=== PATIENT | male | born 1980 | race Caucasian/White ===

== ENCOUNTER 2018-02-09 17:34 | Emergency (ER) | payer MEDICAID ==
[~2018-02-09] VITALS: Ht 188 cm; Wt 100.0 kg
[~2018-02-09 17:34] MED LIST: ARIP10TA33; BENZ2AMP4 PO; MIRT15TA3 PO; MIRT30TA; QUET300T5 PO; RISP1TAB45 IM; SULF1TAB24 PO
--- NOTE | 2018-02-09 17:40 | NUR ---
RECIEVED REPORT FROM VINCENT RAMOS. ALL QUESTIONS ANSWERED ASSUMING CARE OF PT. PT TAKEN TO SHOWER BY WHEELCHAIR BY APPRENTICE PHOTOGRAPHER. PT WILL GO TO ED ROOM 15 AFTER SHOWER.
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
--- NOTE | 2018-02-09 18:28 | NUR ---
PT POOR HISTORIAN. UNABLE TO OBTAIN MEDICAL HISTORY INFORMATION FOR TRIAGE AND CLINICAL SCREEN AT THIS TIME.
--- NOTE | 2018-02-09 18:28 | NUR ---
PT UNABLE TO STAY AWAKE LONG ENOUGH TO ANSWER PAST MEDICAL HISTORY QUESTIONS AT THIS TIME. PT IS ALERT TO VOICE AND FOLLOWS COMMANDS. PT'S SPEECH IS INCOMPREHENSIBLE AT TIMES.
[2018-02-09] MEDS ORDERED: ARIP2TAB2 PO (18:40)
--- NOTE | 2018-02-09 18:58 | NUR ---
PROVIDED BEDSIDE REPORT TO VINCENT AVERY. ALL QUESTIONS ANSWERED. VINCENT AVERY ASSUMING CARE OF THIS PT.
--- NOTE | 2018-02-09 19:21 | NUR ---
PT RESTING ON GURNEY WITH EYES CLOSED RESPONDS TO VERBAL RESPONSE, UNABLE TO STAY AWAKE LONG ENOUGH TO ANSWER PAST MEDICAL HISTORY QUESTIONS AT THIS TIME. PT'S SPEECH IS INCOMPREHENSIBLE AT TIMES. EQUAL CHEST RISE/FALL OBSERVED, MONITORS IN PLACE, SIDERAILS UP X2, CALL LIGHT WITHIN REACH.
--- NOTE | 2018-02-09 20:19 | NUR ---
PT RESTING WITH EYES CLOSED, EASILY RESPONDS TO VERBAL COMMAND, ANSWERS ALL QUESTIONS APPROPRIATELY, PT ABLE TO AMBULATE IN ROOM WITHOUT DIFFICULTY, MONITORS REAPPLIED, CALL LIGHT WITHIN REACH, SIDERAILS UP X2. PA UPDATED ON PT STATUS, PA TO RECHECK PT.
--- NOTE | 2018-02-09 20:27 | NUR ---
PA AT PT'S BEDSIDE FOR RECHECK
--- NOTE | 2018-02-09 21:34 | NUR ---
PT RESTING ON GURNEY, OPENS EYES TO VERBAL RESPONSE, NODS HEAD NO WHEN ASKED ABOUT PAIN, EQUAL CHEST RISE/FALL OBSERVED, SIDERAILS UP X2, CALL LIGHT WITHIN REACH.
--- NOTE | 2018-02-09 21:54 | NUR ---
PT UP TO RR WITH STEADY GAIT, A&OX4, PROVIDED PT WITH SNACK, PA UPDATED ON PT STATUS.
[2018-02-09 22:20] VITALS: BP 140/84
--- NOTE | 2018-02-09 22:36 | NUR ---
PROVIDED PT WITH CLOTHING FROM HOSPITAL CLOSET, PT DENIES FURTHER NEEDS AT THIS TIME
== END 2018-02-09 22:41 | disposition home or self-care (01) ==
LOC: ED 22:35
DX: S09.90XA Unspecified injury of head, initial encounter (principal); G62.9 Polyneuropathy, unspecified; Y04.8XXA Assault by other bodily force, initial encounter; Y93.89 Activity, other specified; Y92.009 Unspecified place in unspecified non-institutional (private) residence as the place of occurrence of the external cause; Y99.8 Other external cause status
CPT/HCPCS: 99283

== ENCOUNTER 2018-04-13 10:58 | Emergency (ER) | payer MEDICAID ==
[~2018-04-13] VITALS: Ht 177.8 cm; Wt 96.0 kg
[~2018-04-13 10:58] MED LIST changes: +ARIP2TAB2 PO
[2018-04-13] MEDS ORDERED: ZIPRASIDONE 20 MG INJ IM ONE (11:00)
[2018-04-13 11:01] VITALS: BP 151/85
--- NOTE | 2018-04-13 11:12 | NUR ---
pt bib remsa for auditory hallucinations. pt states he is hearing voices. pt denies suicide or homicide. pt with hx: paranoid schizophrenia and has been off of his meds for a few days. pt continues to ramble on and talk and talk. urine sample collected and sent to lab. pt with hx: meth and heroine abuse.
[2018-04-13 11:38] LABS: AMPHETAMINE SCREEN, URINE Negative (Negative); BARBITURATE SCREEN, URINE Negative (Negative); BENZODIAZEPINE SCREEN, URINE Negative (Negative); CANNABINOID SCREEN, URINE Negative (Negative); COCAINE SCREEN, URINE Negative (Negative); METHADONE SCREEN, URINE Negative (Negative); OPIATE SCREEN, URINE Negative (Negative)
[2018-04-13 11:43] LABS: BASOPHILS # (AUTO) 0.04 x10^3/uL (0-0.1); BASOPHILS % (AUTO) 1 % (0-1); EOSINOPHILS # (AUTO) 0.22 x10^3/uL (0-0.4); EOSINOPHILS % (AUTO) 3 % (1-7); LYMPHOCYTES # (AUTO) 2.04 x10^3/uL (1-3.4); LYMPHOCYTES % (AUTO) 27 % (22-44); MD NO; MEAN CORPUSCULAR HEMOGLOBIN 30.4 pg (27.5-34.5); MEAN CORPUSCULAR HGB CONC 33.7 g/dL (33.2-36.2); MEAN CORPUSCULAR VOLUME 90.3 fL (81-97); MEAN PLATELET VOLUME 10.3 fL (7.4-10.4); MONOCYTES # (AUTO) 0.67 x10^3/uL (0.2-0.8); MONOCYTES % (AUTO) 9 % (2-9); NEUTROPHILS % (AUTO) 61 % (42-75); PLATELET COUNT 262 x10^3/uL (130-400); RED BLOOD COUNT 5.09 x10^6/uL (4.38-5.82); RED CELL DISTRIBUTION WIDTH 14.8 % (9.4-14.8)
[2018-04-13 11:54] LABS: CHLORIDE 112 mmol/L (98-107)
[2018-04-13 11:58] LABS: ANION GAP 6 mmol/L (5-15); CALCIUM 9.2 mg/dL (8.5-10.1)
[2018-04-13 12:04] LABS: ALANINE AMINOTRANSFERASE 98 U/L (12-78); ALKALINE PHOSPHATASE 119 U/L (45-117); BILIRUBIN,TOTAL 0.3 mg/dL (0.2-1.0); CREATININE 1.02 mg/dL (0.7-1.3); SALICYLATE LEVEL 2.1 mg/dL (2.8-20.0); TOTAL PROTEIN 7.5 g/dL (6.4-8.2)
[2018-04-13 12:05] LABS: ACETAMINOPHEN < 2 mcg/mL (10-30)
--- NOTE | 2018-04-13 12:33 | NUR ---
PT RESTING IN BED
--- NOTE | 2018-04-13 12:58 | NUR ---
PT BECAME UPSET AND STATING YOU GUYS AREN'T DOING ANYTHING FOR ME. "FUCK THIS PLACE. " PT REFUSED GEODON AND WANTED TO GO HOME. PT UP AMBULATORY AND STABLE ON FEET.
== END 2018-04-13 13:03 | disposition left against medical advice (07) ==
LOC: ED 11:24
DX: F20.0 Paranoid schizophrenia (principal); F20.9 Schizophrenia, unspecified; Z86.19 Personal history of other infectious and parasitic diseases
CPT/HCPCS: 36415; 80053; 80307; 80329; 85025; 99284; G0480

== ENCOUNTER 2018-05-19 11:38 | Emergency (ER) | payer MEDICAID ==
[~2018-05-19] VITALS: Ht 175.3 cm; Wt 93.2 kg
[2018-05-19 11:46] VITALS: BP 118/75
--- NOTE | 2018-05-19 11:56 | NUR ---
PT HERE FOR RIGHT ORBIT ABCESS.
[2018-05-19] MEDS ORDERED: LIDOCAINE-MPF 1%, 5ML ONE (12:27)
[2018-05-19] MEDS ORDERED: LIDOCAINE-MPF 1%, 5ML INFIL ONE (12:30)
== END 2018-05-19 12:59 | disposition home or self-care (01) ==
LOC: ED 11:55
DX: H00.033 Abscess of eyelid right eye, unspecified eyelid (principal); F17.200 Nicotine dependence, unspecified, uncomplicated; Z86.19 Personal history of other infectious and parasitic diseases
CPT/HCPCS: 10060; 99283

== ENCOUNTER 2018-10-19 23:08 | Emergency (ER) | payer MEDICAID, OTHER ==
[~2018-10-19] VITALS: Ht 182.9 cm; Wt 94.8 kg
[2018-10-19 23:08] VITALS: BP 154/80
[2018-10-19] MEDS ORDERED: OLAN10TA3 PO (23:13)
--- NOTE | 2018-10-19 23:17 | NUR ---
THE PT WAS TAKEN JUICE AND WATER. THE PT DENIES SI OR HI. ASKED DIRECTLY.
[2018-10-19] MEDS ORDERED: LORazepam 1MG TABLET ONE (23:25)
--- NOTE | 2018-10-19 23:27 | NUR ---
MEDICATED FOR ANXIETY.
[2018-10-19] MEDS ORDERED: LORazepam 1MG TABLET PO ONE (23:30)
--- NOTE | 2018-10-20 00:03 | NUR ---
D/C INST REVIEWED W/ THE PT TO INCLUDE F/U OP W/ A PCP AND OR MENTAL HEALTH PROFESSIONAL. THE PT WAS GIVEN A LIST OF REFERRALS AND A TAXI RIDE TO HIS MOTHER'S HOUSE.
== END 2018-10-20 00:06 | disposition home or self-care (01) ==
LOC: ED 23:54
DX: F41.1 Generalized anxiety disorder (principal); F20.9 Schizophrenia, unspecified; F29 Unspecified psychosis not due to a substance or known physiological condition; Z72.9 Problem related to lifestyle, unspecified; Z63.8 Other specified problems related to primary support group; Z75.9 Unspecified problem related to medical facilities and other health care
CPT/HCPCS: 99284

== ENCOUNTER 2020-03-10 10:01 | Emergency (ER) | payer MEDICAID ==
[~2020-03-10] VITALS: Ht 177.8 cm; Wt 75.0 kg
[~2020-03-10 10:01] MED LIST changes: +MIRT-38 PO; -MIRT30TA; +OLAN10TA3 PO
[2020-03-10 10:13] VITALS: BP 119/80
--- NOTE | 2020-03-10 10:21 | NUR ---
THROUGHPUT: PSYCH ETL MANAGER NOTIFIED OF CONSULT REQUEST.
--- NOTE | 2020-03-10 10:21 | NUR ---
PT BIB EMS FROM THE [facility] FOR PT HAVING HALLUCINATIONS. PT STATES HE FEELS LIKE THE HALLUCINATIONS ARE TRYING TO HURT HIM AND LAUGHING AT HIM. THE VOICES ARE TELLING HIM THEY ARE GOING TO DO "THINGS" TO HIM. NOTHING SPECIFIC. PT ALSO STATES HE HAS HAD DIARRHEA X 1.5 MONTH WITH LEFT SIDE ABD PAIN.
[2020-03-10 10:38] LABS: BASOPHILS % (AUTO) 1 % (0-1); EOSINOPHILS % (AUTO) 1 % (1-7); LYMPHOCYTES % (AUTO) 33 % (22-44); MEAN CORPUSCULAR HEMOGLOBIN 29.7 pg (27.5-34.5); MEAN CORPUSCULAR HGB CONC 33.4 g/dL (33.2-36.2); MONOCYTES % (AUTO) 6 % (2-9); NEUTROPHILS % (AUTO) 60 % (42-75); PLATELET COUNT 273 x10^3/uL (130-400); RED BLOOD COUNT 4.81 x10^6/uL (4.38-5.82); RED CELL DISTRIBUTION WIDTH 15.6 % (9.4-14.8)
[2020-03-10 10:41] LABS: MD NO
[2020-03-10 10:52] LABS: ALBUMIN 3.9 g/dL (3.4-5.0); ANION GAP 5 mmol/L (5-15); CALCIUM 8.8 mg/dL (8.5-10.1); CHLORIDE 111 mmol/L (98-107)
[2020-03-10 11:03] LABS: SALICYLATE LEVEL < 1.7 mg/dL (2.8-20.0)
[2020-03-10 11:04] LABS: ALANINE AMINOTRANSFERASE 46 U/L (12-78); ALKALINE PHOSPHATASE 103 U/L (45-117); BILIRUBIN,TOTAL 0.7 mg/dL (0.2-1.0); CREATININE 0.81 mg/dL (0.7-1.3); TOTAL PROTEIN 7.4 g/dL (6.4-8.2)
[2020-03-10 11:30] LABS: AMPHETAMINE SCREEN, URINE Positive (Negative); BARBITURATE SCREEN, URINE Negative (Negative); BENZODIAZEPINE SCREEN, URINE Negative (Negative); CANNABINOID SCREEN, URINE Negative (Negative); COCAINE SCREEN, URINE Negative (Negative); METHADONE SCREEN, URINE Negative (Negative); OPIATE SCREEN, URINE Negative (Negative)
--- NOTE | 2020-03-10 11:31 | NUR ---
ROOM SECURED. SITTER OUTSIDE THE ROOM IN FULL VIEW.
--- NOTE | 2020-03-10 11:32 | NUR ---
BELONGINGS PLACED IN LOCKER.
--- NOTE | 2020-03-10 11:51 | NUR ---
PT LUNCH TRAY DELIVERED.
[2020-03-10] MEDS ORDERED: OLANZAPINE 10 MG TABLET PO ONE (12:30)
[2020-03-10] MEDS ORDERED: OLANZAPINE 10 MG TABLET ONE (12:33)
--- NOTE | 2020-03-10 13:50 | NUR ---
PT RESTING ON ED GURNEY, EYES CLOSED. EVEN RISE AND FALL OF CHEST NOTED. ROOM SECURED. PT IN FULL VIEW OF SITTER OUTSIDE THE ROOM.
[2020-03-11] MEDS ORDERED: ARIP10TA33 PO (10:17)
[2020-03-11] MEDS ORDERED: MIRT-37 PO (10:21)
[2020-03-11] MEDS ORDERED: OLAN10TA9 PO (10:21)
== END 2020-03-10 15:03 ==
LOC: ED 10:49
DX: F15.10 Other stimulant abuse, uncomplicated (principal); Z20.822 Contact with and (suspected) exposure to COVID-19; F23 Brief psychotic disorder; R19.7 Diarrhea, unspecified; M54.2 Cervicalgia; F17.200 Nicotine dependence, unspecified, uncomplicated; Z72.9 Problem related to lifestyle, unspecified
CPT/HCPCS: 36415; 80053; 80299; 80307; 80329; 84443; 85025; 87426; 87635; 99285; G0480

== ENCOUNTER 2020-03-10 13:54 | Inpatient (IN) | payer MEDICAID ==
[~2020-03-10] VITALS: Ht 177.8 cm; Wt 76.5 kg
[~2020-03-10 13:54] MED LIST changes: +FLU VACC QS2020-21(6MOS UP)/PF 60MCG/0.5 ML SYR IM ONE
[2020-03-10] MEDS ORDERED: DOCUSATE 100 MG CAPSULE PO PRN (14:30)
[2020-03-10] MEDS ORDERED: POLYETHYLENE GLYCOL 17 GM PACKET PO PRN (14:30)
[2020-03-10] MEDS ORDERED: ONDANSETRON ODT 4 MG PO PRN (14:30)
[2020-03-10 15:04] VITALS: BP 111/65
[2020-03-10] MEDS ORDERED: PLEASE ENTER HEIGHT AND WEIGHT MC SCH (15:30)
[2020-03-11 07:22] VITALS: BP 118/80
[2020-03-11] MEDS: NICOTINE 21 MG/24 HR PATCH.TD24 TD SCH (08:52)
[2020-03-11] MEDS: ACETAMINOPHEN 325 MG TABLET PO PRN ×2 (08:58→20:01)
[2020-03-11 09:49] LABS: CHOL/HDL RATIO 2.6; FREE T4 (FREE THYROXINE) 1.3 ng/dL (0.76-1.46); LDL/HDL RATIO 1.3 (0.5-3.0)
[2020-03-11] MEDS ORDERED: ARIP10TA33 PO (10:17)
[2020-03-11] MEDS ORDERED: OLAN10TA9 PO (10:21)
[2020-03-11] MEDS ORDERED: MIRT-37 PO (10:21)
[2020-03-11] MEDS ORDERED: FLU VACC QS2020-21(6MOS UP)/PF 60MCG/0.5 ML SYR IM ONE (11:00)
[2020-03-11 14:42] LABS: MICROSCOPIC NOT IND
[2020-03-11] MEDS ORDERED: IBUPROFEN 200 MG TABLET PO PRN (15:00)
[2020-03-11] MEDS ORDERED: CALCIUM CARBONATE 500 MG TAB.CHEW PO PRN (15:00)
[2020-03-11 19:51] VITALS: BP 136/81
[2020-03-11] MEDS: MIRTAZAPINE 15 MG TABLET PO SCH (20:01)
[2020-03-11] MEDS: OLANZAPINE 10 MG TABLET PO SCH (20:01)
[2020-03-12 07:21] VITALS: BP 122/82
[2020-03-12] MEDS: ACETAMINOPHEN 325 MG TABLET PO PRN (08:52)
[2020-03-12] MEDS: NICOTINE 21 MG/24 HR PATCH.TD24 TD SCH (08:52)
[2020-03-12] MEDS: LORazepam 1MG TABLET PO PRN (16:26)
[2020-03-12] MEDS: MIRTAZAPINE 15 MG TABLET PO SCH (19:57)
[2020-03-12] MEDS: OLANZAPINE 10 MG TABLET PO SCH (19:57)
[2020-03-12 19:58] VITALS: BP 126/81
[2020-03-13 07:27] VITALS: BP 108/68
[2020-03-13] MEDS: NICOTINE 21 MG/24 HR PATCH.TD24 TD SCH (09:55)
[2020-03-13] MEDS: LORazepam 1MG TABLET PO PRN ×2 (15:13→20:39)
[2020-03-13 20:18] VITALS: BP 128/87
[2020-03-13] MEDS: MIRTAZAPINE 15 MG TABLET PO SCH (20:39)
[2020-03-13] MEDS: OLANZAPINE 10 MG TABLET PO SCH (20:39)
[2020-03-13] MEDS: ACETAMINOPHEN 325 MG TABLET PO PRN (20:39)
[2020-03-14 07:14] VITALS: BP 106/66
[2020-03-14] MEDS: NICOTINE 21 MG/24 HR PATCH.TD24 TD SCH (08:00)
[2020-03-14] MEDS ORDERED: OLAN10TA9 PO (10:45)
[2020-03-14] MEDS ORDERED: NICO-587 TD (10:45)
[2020-03-14] MEDS ORDERED: MIRT-34 PO (10:45)
[2020-03-14] MEDS: LORazepam 1MG TABLET PO PRN ×2 (13:18→20:13)
[2020-03-14 19:35] VITALS: BP 107/62
[2020-03-14] MEDS: MIRTAZAPINE 15 MG TABLET PO SCH (20:13)
[2020-03-14] MEDS: OLANZAPINE 10 MG TABLET PO SCH (20:13)
[2020-03-14] MEDS: ACETAMINOPHEN 325 MG TABLET PO PRN (20:13)
[2020-03-15 07:25] VITALS: BP 108/66
[2020-03-15] MEDS: NICOTINE 21 MG/24 HR PATCH.TD24 TD SCH (08:21)
[2020-03-15] MEDS: LORazepam 1MG TABLET PO PRN (08:24)
== END 2020-03-15 10:02 | disposition home or self-care (01) | DRG 750 ==
LOC: 3E 14:54
PROVIDERS: ADMIT Psychiatry & Neurology Psychosomatic Medicine; ATTEND Psychiatry & Neurology Psychosomatic Medicine
DX: F25.0 Schizoaffective disorder, bipolar type (principal); F19.11 Other psychoactive substance abuse, in remission; F17.200 Nicotine dependence, unspecified, uncomplicated; F14.90 Cocaine use, unspecified, uncomplicated; F11.90 Opioid use, unspecified, uncomplicated; E86.0 Dehydration; B19.20 Unspecified viral hepatitis C without hepatic coma; G47.00 Insomnia, unspecified; Z20.822 Contact with and (suspected) exposure to COVID-19; G62.9 Polyneuropathy, unspecified; Z79.899 Other long term (current) drug therapy; Z91.5 Personal history of self-harm
CPT/HCPCS: 36415; 71045; 80053; 80061; 80299; 80307; 80329; 81003; 84439; 84443; 85025; 87426; 87635; 90686; 93005; 99285; G0480